=== PATIENT | female | born 1960 | race Caucasian/White ===

== ENCOUNTER 2019-11-12 15:45 | Outpatient (RCR) | payer BC | END 2020-01-14 | disposition home or self-care (01) | PROVIDERS: ATTEND Neurological Surgery | DX: Z98.1 Arthrodesis status (principal); K21.9 Gastro-esophageal reflux disease without esophagitis; I10 Essential (primary) hypertension; E11.9 Type 2 diabetes mellitus without complications; M81.0 Age-related osteoporosis without current pathological fracture ==

== ENCOUNTER 2020-10-16 03:53 | Emergency (ER) | payer BC ==
[~2020-10-16] VITALS: Ht 152.4 cm; Wt 93.8 kg
[2020-10-16] MEDS ORDERED: NS IV 1000 ML 1,000 ML ONE (04:07)
[2020-10-16] MEDS ORDERED: ONDANSETRON 4 MG/2 ML (SDV) Z0FRAN ONE (04:07)
[2020-10-16 04:11] LABS: BASOPHILS % (AUTO) 0 % (0-10); EOSINOPHILS % (AUTO) 1 % (0-10); HEMATOCRIT 35 % (35-52); HEMOGLOBIN 11.4 G/DL (11.5-16.0); LYMPHOCYTES # (AUTO) 0.5 X 10^3 (1.0-4.0); LYMPHOCYTES % (AUTO) 8 % (12-44); MEAN CORPUSCULAR HEMOGLOBIN 29 PG (25-34); MEAN CORPUSCULAR HGB CONC 33 G/DL (32-36); MEAN CORPUSCULAR VOLUME 90 FL (80-99); MEAN PLATELET VOLUME 12.1 FL (7.4-10.4); MONOCYTES # (AUTO) 0.1 X 10^3 (0.0-1.0); MONOCYTES % (AUTO) 1 % (0-12); NEUTROPHILS # (AUTO) 5.6 X 10^3 (1.8-7.8); NEUTROPHILS % (AUTO) 90 % (42-75); PLATELET COUNT 159 10^3/uL (130-400); WHITE BLOOD COUNT 6.2 10^3/uL (4.3-11.0)
--- NOTE | 2020-10-16 04:12 | ED General ---
General Stated Complaint: N/V-LOW O2 SAT Source of Information: Patient Exam Limitations: No Limitations History of Present Illness Date Seen by Provider: Oct 16, 2020 Time Seen by Provider: 04:07 Initial Comments 60-year-old female presents via EMS with complaints of waking up at 2 AM and feeling body aches and chills, nausea and began to vomit. States that she felt okay yesterday and went to bed without incident she did not eat any dinner, but did have some snacks on her way home from work. 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 Has been exposed to Covid and previously diagnosed with Covid. Otherwise denies any chest pain, swelling of extremities, cough or shortness of air.EMS noted Oxygen sat @ 88% on started on 2 liters/nc. Patient 90-93% on RA on arrival Allergies and Home Medications Allergies Coded Allergies: No Known Drug Allergies (Unverified , 10/16/20) Home Medications Ondansetron 4 Mg Tab.rapdis, 4 MG PO TID Prescribed by: NILAM ECKERT on 10/16/20 0441 Patient Home Medication List Home Medication List Reviewed: Yes Review of Systems Review of Systems Constitutional: chills; No dizziness, No fever; malaise EENTM: no symptoms reported Respiratory: No cough, No short of breath Cardiovascular: No chest pain, No edema, No palpitations, No syncope Gastrointestinal: No abdominal pain, No constipation, No diarrhea; nausea, vomiting Musculoskeletal: No back pain, No joint pain Skin: No change in color, No rash Psychiatric/Neurological: Denies Numbness, Denies Paresthesia Past Moeijwo-Buwmhu-Xmbyql Hx Past Med/Social Hx: Reviewed Nursing Past Med/Soc Hx Patient Social History Smoking Status: Unknown if Ever Smoked Past Medical History Respiratory: No Cardiac: Yes Coronary Artery Disease Physical Exam Vital Signs Vital Signs - First Documented 10/16/20 03:57 Temp 37.7 Pulse 108 Resp 14 B/P (MAP) 154/70 (98) Pulse Ox 93 O2 Delivery Room Air Capillary Refill : Height, Weight, BMI Height: '" Weight: lbs. oz. kg; BMI Method: General Appearance: No Apparent Distress, WD/WN HEENT: PERRL/EOMI, Normal ENT Inspection Neck: Non Tender, Supple Respiratory: Chest Non Tender, Lungs Clear, No Accessory Muscle Use, No Respiratory Distress Cardiovascular: Regular Rate, Rhythm, No Edema, No Gallop, No JVD Gastrointestinal: Non Tender, Soft Back: Normal Inspection, No CVA Tenderness Extremity: Normal Capillary Refill, Normal Inspection, Non Tender Neurologic/Psychiatric: Alert, Oriented x3, No Motor/Sensory Deficits, Normal Mood/Affect Skin: Normal Color, Warm/Dry Focused Exam Lactate Level 10/16/20 04:20: Lactic Acid Level 1.60 Lactic Acid Level Laboratory Tests Test 10/16/20 04:20 Lactic Acid Level 1.60 MMOL/L (0.50-2.00) Progress/Results/Core Measures Suspected Sepsis SIRS Temperature: Pulse: Respiratory Rate: Laboratory Tests 10/16/20 04:00: White Blood Count 6.2 Blood Pressure / Mean: 10/16/20 04:20: Lactic Acid Level 1.60 Laboratory Tests 10/16/20 04:00: Creatinine 0.67, Platelet Count 159, Total Bilirubin 0.6 Results/Orders Lab Results Laboratory Tests Test 10/16/20 04:00 10/16/20 04:20 10/16/20 04:24 Range/Units White Blood Count 6.2 4.3-11.0 10^3/uL Red Blood Count 3.87 L 4.35-5.85 10^6/uL Hemoglobin 11.4 L 11.5-16.0 G/DL Hematocrit 35 35-52 % Mean Corpuscular Volume 90 80-99 FL Mean Corpuscular Hemoglobin 29 25-34 PG Mean Corpuscular Hemoglobin Concent 33 32-36 G/DL Red Cell Distribution Width 14.2 10.0-14.5 % Platelet Count 159 130-400 10^3/uL Mean Platelet Volume 12.1 H 7.4-10.4 FL Immature Granulocyte % (Auto) 0 % Neutrophils (%) (Auto) 90 H 42-75 % Lymphocytes (%) (Auto) 8 L 12-44 % Monocytes (%) (Auto) 1 0-12 % Eosinophils (%) (Auto) 1 0-10 % Basophils (%) (Auto) 0 0-10 % Neutrophils # (Auto) 5.6 1.8-7.8 X 10^3 Lymphocytes # (Auto) 0.5 L 1.0-4.0 X 10^3 Monocytes # (Auto) 0.1 0.0-1.0 X 10^3 Eosinophils # (Auto) 0.0 0.0-0.3 10^3/uL Basophils # (Auto) 0.0 0.0-0.1 10^3/uL Immature Granulocyte # (Auto) 0.0 0.0-0.1 10^3/uL Neutrophils % (Manual) 85 % Lymphocytes % (Manual) 8 % Monocytes % (Manual) 1 % Band Neutrophils 6 % Basophilic Stippling SLIGHT Sodium Level 136 135-145 MMOL/L Potassium Level 3.7 3.6-5.0 MMOL/L Chloride Level 104 98-107 MMOL/L Carbon Dioxide Level 23 21-32 MMOL/L Anion Gap 9 5-14 MMOL/L Blood Urea Nitrogen 21 H 7-18 MG/DL Creatinine 0.67 0.60-1.30 MG/DL Estimat Glomerular Filtration Rate > 60 BUN/Creatinine Ratio 31 Glucose Level 140 H 70-105 MG/DL Calcium Level 8.4 L 8.5-10.1 MG/DL Corrected Calcium 9.0 8.5-10.1 MG/DL Total Bilirubin 0.6 0.1-1.0 MG/DL Aspartate Amino Transf (AST/SGOT) 19 5-34 U/L Alanine Aminotransferase (ALT/SGPT) 17 0-55 U/L Alkaline Phosphatase 99 40-136 U/L C-Reactive Protein 6.76 H <0.50 MG/DL Total Protein 5.9 L 6.4-8.2 GM/DL Albumin 3.3 3.2-4.5 GM/DL Smear Scan LRG PLTS Lactic Acid Level 1.60 0.50-2.00 MMOL/L My Orders Orders - NILAM ECKERT DO Cbc With Automated Diff (10/16/20 04:07) Comprehensive Metabolic Panel (10/16/20 04:07) Chest 1 View Ap/Pa Only (10/16/20 04:07) Lactic Acid Analyzer (10/16/20 04:07) Ns Iv 1000 Ml (Sodium Chloride 0.9%) (10/16/20 04:15) Ondansetron Injection (Zofran Injectio (10/16/20 04:15) Manual Differential (10/16/20 04:00) Crp Fs (10/16/20 04:12) Ondansetron Injection (Zofran Injectio (10/16/20 04:07) Ns Iv 1000 Ml (Sodium Chloride 0.9%) (10/16/20 04:07) Coronavirus Sars-Cov-2 So 2018 (10/16/20 04:13) Procalcitonin (Pct) (10/16/20 04:00) Ed Iv/Invasive Line Start (10/16/20 04:22) Medications Given in ED Current Medications Medications Dose Ordered Sig/Tim Route Start Time Stop Time Status Last Admin Dose Admin Ondansetron HCl 4 mg ONCE ONCE IVP 10/16/20 04:15 10/16/20 04:16 DC 10/16/20 04:15 4 MG Vital Signs/I&O 10/16/20 03:57 Temp 37.7 Pulse 108 Resp 14 B/P (MAP) 154/70 (98) Pulse Ox 93 O2 Delivery Room Air Capillary Refill : Diagnostic Imaging Diagonstic Imaging: Xray Plain Films/CT/US/NM/MRI: chest Comments few central patchy infiltrates, otherwise clear Reviewed: Reviewed by Me Departure Impression Primary Impression: Nausea & vomiting Qualified Codes: R11.2 - Nausea with vomiting, unspecified Disposition: HOME, SELF-CARE Condition: Improved Departure-Patient Inst. Referrals: RODERICK BERNARDO MD (PCP/Family) Primary Care Physician Patient Instructions: Nausea and Vomiting, Adult ED Scripts Ondansetron (Ondansetron Odt) 4 Mg Tab.rapdis 4 MG PO TID for Nausea, #15 TAB Prov: NILAM ECKERT DO 10/16/20 Work/School Note: Work Release Form Date Seen in the Emergency Department: Oct 16, 2020 Return to Work: Oct 18, 2020 Restrictions: Return-No Fever (24hrs), Return-No Vomiting(24hrs) NILAM ECKERT DO Oct 16, 2020 04:12
[2020-10-16] MEDS ORDERED: ONDANSETRON 4 MG/2 ML (SDV) Z0FRAN IVP ONE (04:15)
[2020-10-16] MEDS ORDERED: NS IV 1000 ML 1,000 ML IV SCH (04:15)
[2020-10-16 04:30] LABS: ALANINE AMINOTRANSFERASE 17 U/L (0-55); ALBUMIN 3.3 GM/DL (3.2-4.5); ALKALINE PHOSPHATASE 99 U/L (40-136); BILIRUBIN,TOTAL 0.6 MG/DL (0.1-1.0); BUN/CREATININE RATIO 31; CALCIUM 8.4 MG/DL (8.5-10.1); CARBON DIOXIDE 23 MMOL/L (21-32); CHLORIDE 104 MMOL/L (98-107); CREATININE SERUM 0.67 MG/DL (0.60-1.30); GFR ESTIMATED > 60; GLUCOSE 140 MG/DL (70-105); POTASSIUM 3.7 MMOL/L (3.6-5.0); SODIUM 136 MMOL/L (135-145); TOTAL PROTEIN 5.9 GM/DL (6.4-8.2)
[2020-10-16] MEDS ORDERED: ONDA4TAB11 PO (04:41)
[2020-10-16 04:56] LABS: BAND NEUTROPHILS 6 %; LYMPHOCYTES % (MANUAL) 8 %; MONOCYTES % (MANUAL) 1 %; NEUTROPHILS % (MANUAL) 85 %; SMEAR SCAN COMMENT LRG PLTS
[2020-10-16 05:10] VITALS: BP 136/74
--- NOTE | 2020-10-16 06:46 | Diagnostic Imaging Report ---
Indication: Dyspnea with fever and hypoxia. Comparison: None. Discussion: Single portable upright view of the chest was obtained. Low lung volumes. Bilateral groundglass infiltrates, concerning for viral pneumonia. The patient is slightly rotated to the right which likely accounts for the prominence of the right mediastinal border. Normal heart size. No pleural fluid or pneumothorax. No osseous abnormality. Impression: 1. Bilateral groundglass infiltrates, likely viral pneumonia. Dictated by: Dictated on workstation # [id number]
== END 2020-10-16 05:10 | disposition home or self-care (01) ==
LOC: EDUNIT# 03:53 → ER FS 03:58
DX: R11.2 Nausea with vomiting, unspecified (principal); Z20.822 Contact with and (suspected) exposure to COVID-19
CPT/HCPCS: 36415; 71045; 80053; 83605; 84145; 85007; 85027; 86141; 99284; U0002; 87635

== ENCOUNTER → 2021-02-21 | Outpatient (CLI) | payer BC ==
[~2021-02-21] MED LIST: ONDA4TAB11 PO
== END ==
LOC: LAB FS 02-20 14:52
PROVIDERS: ATTEND Orthopaedic Surgery
DX: Z01.812 Encounter for preprocedural laboratory examination (principal); Z20.822 Contact with and (suspected) exposure to COVID-19
CPT/HCPCS: 87635